=== PATIENT | female | born 1965 | race Caucasian/White ===

== ENCOUNTER → 2019-06-15 16:34 | Outpatient (CLI) | payer OTHER, SELFPAY ==
--- NOTE | 2019-06-15 | DI.MG.S_ITS ---
BILATERAL DIGITAL SCREENING MAMMOGRAM 3D/2D WITH CAD: 06/15/2019 CLINICAL: Routine screening. Family history of breast cancer. Comparison is made to exams dated: 12/20/2016 mammogram and 02/20/2018 mammogram - [facility]. The tissue of both breasts is heterogeneously dense. This may lower the sensitivity of mammography. Current study was also evaluated with a Computer Aided Detection (CAD) system. No significant masses, calcifications, or other findings are seen in either breast. There has been no significant interval change. IMPRESSION: NEGATIVE There is no mammographic evidence of malignancy. A 1 year screening mammogram is recommended. This exam was interpreted at Station ID: [id number]. NOTE: For mammograms, a report in lay terms will be sent to the patient. Approximately 15% of breast malignancies will not be visualized mammographically. In the management of a palpable breast mass, a negative mammogram must not discourage biopsy of a clinically suspicious lesion. Electronically Signed By: Lázaro yang/geneva:06/16/2019 13:01:39 letter sent: Normal Exam ACR BI-RADS Category 1: Negative 3341F
== END ==
PROVIDERS: Visit Provider Internal Medicine
DX: Z12.31 Encounter for screening mammogram for malignant neoplasm of breast (principal); Z80.3 Family history of malignant neoplasm of breast
CPT/HCPCS: 77063; 77067

== ENCOUNTER → 2019-08-18 10:08 | Outpatient (ROUT) | payer OTHER, SELFPAY ==
[2019-08-18 11:02] LABS: Influenza A and B by PCR Rapid Negative (Negative)
== END ==
PROVIDERS: Visit Provider Internal Medicine
DX: R05 Cough (principal); R09.89 Other specified symptoms and signs involving the circulatory and respiratory systems; R11.0 Nausea
CPT/HCPCS: 87502

== ENCOUNTER → 2020-08-01 17:20 | Outpatient (CLI) | payer OTHER, SELFPAY ==
--- NOTE | 2020-08-01 17:26 | DI.MG.S_ITS ---
BILATERAL DIGITAL SCREENING MAMMOGRAM 3D/2D WITH CAD: 08/01/2020 CLINICAL: Routine screening. Family history of breast cancer. Comparison is made to exams dated: 06/15/2019 mammogram - [facility], 02/20/2018 mammogram, and 12/20/2016 mammogram - [facility]. The tissue of both breasts is heterogeneously dense. This may lower the sensitivity of mammography. Current study was also evaluated with a Computer Aided Detection (CAD) system. No significant masses, calcifications, or other findings are seen in either breast. There has been no significant interval change. IMPRESSION: NEGATIVE There is no mammographic evidence of malignancy. A 1 year screening mammogram is recommended. This exam was interpreted at Station ID: [id number]. NOTE: For mammograms, a report in lay terms will be sent to the patient. Approximately 15% of breast malignancies will not be visualized mammographically. In the management of a palpable breast mass, a negative mammogram must not discourage biopsy of a clinically suspicious lesion. Electronically Signed By: Freda lara/geneva:08/02/2020 09:02:40 letter sent: Normal Exam ACR BI-RADS Category 1: Negative 3341F
== END ==
PROVIDERS: PCP Internal Medicine; Referring Provider Internal Medicine; Visit Provider Internal Medicine
DX: Z12.31 Encounter for screening mammogram for malignant neoplasm of breast (principal); Z80.3 Family history of malignant neoplasm of breast
CPT/HCPCS: 77063; 77067

== ENCOUNTER → 2020-12-26 08:15 | Outpatient (CLI) | payer OTHER, SELFPAY ==
[2020-12-26] MEDS: COVID-19 VACC #1, MRNA(MOD) 100 MCG/0.5 ML VIAL IM (08:20)
== END ==
PROVIDERS: PCP Internal Medicine; Visit Provider Internal Medicine
DX: Z23 Encounter for immunization (principal)
CPT/HCPCS: 0011A; 91301

== ENCOUNTER → 2021-01-24 08:05 | Outpatient (CLI) | payer OTHER, SELFPAY ==
[2021-01-24] MEDS: COVID-19 VACC #2, MRNA(MOD) 100 MCG/0.5 ML VIAL IM (08:15)
== END ==
PROVIDERS: PCP Internal Medicine; Referring Provider Internal Medicine; Visit Provider Internal Medicine
DX: Z23 Encounter for immunization (principal)
CPT/HCPCS: 0012A; 91301

== ENCOUNTER 2021-03-19 17:03 | Emergency (ER) | payer OTHER, SELFPAY ==
[2021-03-19] VITALS (14 sets, daily range): BP systolic 86–160; BP diastolic 50–100; PULSE 82–135; RESP 11–21; TEMP 37.1; O2SAT 89–97
[2021-03-19] MEDS: SODIUM CHLORIDE 0.9% 1,000 ML 1000 ML IV (18:00)
[2021-03-19] MEDS: LORazepam 2 MG/ML INJ 1 MG IV (18:01)
[2021-03-19 18:14] LABS: Add Manual Diff / Slide Review NO; Basophils Absolute Auto 100 /uL (0-100); Basophils Percent Auto 0.9 % (0-2); Eosinophils Absolute Auto 100 /uL (0-450); Eosinophils Percent Auto 1.2 % (2-4); Hematocrit 45.6 % (36-46); Hemoglobin 14.9 g/dL (12.0-16.0); Lymphocytes Absolute Auto 3000 /uL (1100-4500); Lymphocytes Percent Auto 43.6 % (25-40); Mean Corpuscular HGB Conc 32.7 % (30-36); Mean Corpuscular Hemoglobin 29.5 PG (26-34); Mean Corpuscular Volume 90.2 fL (80-100); Monocytes Absolute Auto 400 /uL (0-900); Monocytes Percent Auto 5.6 % (3-14); Neutrophils Absolute Auto 3300 /uL (1500-7000); Neutrophils Percent Auto 48.7 % (50-75); Platelet Count 321 X10^3/uL (150-400); Red Blood Cell Count 5.06 X10^6/uL (4.0-5.2); Red Cell Distribution Width 12.9 % (11.6-14.8); White Blood Cell Count 6.8 X10^3/uL (4.5-11.0)
[2021-03-19 18:26] LABS: Alanine Aminotransferase 47 IU/L (<35); Albumin Globulin Ratio 1.6 (1.0-2.8); Alkaline Phosphatase 77 U/L (38-126); Aspartate Aminotransferase 96 IU/L (14-36); BUN Creatinine Ratio 19.3 (6-22); Bilirubin Total 0.9 mg/dL (0.2-1.3); Bilirubin Unconjugated 0.8 mg/dL (0.0-1.1); Blood Urea Nitrogen 11 mg/dL (7-17); Calcium 9.9 mg/dL (8.4-10.2); Carbon Dioxide 26 mmol/L (22-32); Chloride 105 mmol/L (98-107); Estimated Glomerular Filt Rate > 60.0 mL/min (>60); Globulin 3.2 g/dL (1.7-4.1); Glucose 218 mg/dL (70-100); HEMOLYSIS < 15 (0-50); Lipase 320 U/L (23-300); Magnesium 2.1 mg/dL (1.6-2.3); Potassium 4.1 mmol/L (3.4-5.1); Sodium 145 mmol/L (137-145); Total Protein 8.2 g/dL (6.3-8.2)
[2021-03-19 18:33] LABS: Ethanol (ETOH) 337 mg/dL
--- NOTE | 2021-03-19 18:52 | ED.GENADULT ---
HPI - General Adult General Chief complaint: Toxicology Problem Stated complaint: DETOX BREATHING HARD Time Seen by Provider: 03/19/21 17:46 Source: patient Mode of arrival: Ambulatory Limitations: no limitations History of Present Illness HPI narrative: Patient is a 55-year-old female. Is otherwise healthy but has had a long complicated history with drinking. She has been to detox/rehab in the past. Her last stent of this was 4-5 years ago. She started drinking about 1 month ago. This was after spending upwards of 1 year without any alcohol use. Unsure exactly why she started drinking a month ago but it has been daily since then. Her last drink today was at approximately 0200 hours in the afternoon. She states she has withdrawn from alcohol in the past but is been isolated to having shaking. She has never had any seizures in the past. She denies any other medical problems. Denies any other drug use to include marijuana. Does take a multivitamin on a daily basis. She was persuaded to come to the emergency department this evening by her . He is at bedside. She is voluntary for detox. Related Data Previous Rx's Medication Instructions Recorded lorazepam [Ativan] 1 mg PO TID PRN 2 Days #6 tab 03/20/21 Review of Systems Constitutional Constitutional: Reports system reviewed and no additional complaints, except as documented Cardiovascular Cardiovascular: Reports system reviewed and no additional complaints, except as documented Respiratory Respiratory: Reports system reviewed and no additional complaints, except as documented Gastrointestinal Gastrointestinal: Reports system reviewed and no additional complaints, except as documented Neurologic Comments: Intoxicated Psychiatric Comments: Intoxicated Hematologic/Lymphatic Hematologic/Lymphatic: Reports system reviewed and no additional complaints, except as documented Allergic/Immunologic Allergic/Immunologic: Reports system reviewed and no additional complaints, except as documented Patient History Medical History Alcohol abuse alcohol intake frequency: 3 or more drinks per day Exam Initial Vital Signs Initial Vital Signs: Vital Signs Temperature 98.7 F 03/19/21 17:25 Pulse Rate 135 H 03/19/21 17:25 Respiratory Rate 20 03/19/21 17:25 Blood Pressure 160/100 H 03/19/21 17:25 Pulse Oximetry 94 03/19/21 17:25 Const General: cooperative and comfortable Limitations: other limitations (Intoxicated) HENMT Head: normal to inspection and normocephalic Resp Effort & Inspection: normal respiratory effort Auscultation: clear to auscultation bilaterally Cardio Rate: tachycardic Rhythm: regular rhythm GI Inspection: non-distended Palpation: soft Skin Lesions: no lesions Rashes: no rashes Neuro General: patient alert and patient awake Extrem General: normal to inspection and capillary refill normal Psych Appearance: grossly normal and well kempt Scores GCS Shel[place] coma scale eye opening: Spontaneous [place] coma scale verbal response: Orientated [place] coma scale motor response: Obey commands [place] coma scale total score: 15 Course Orders Ordered: ED Orders 03/19/21 17:35 Complete Blood Count AUTO DIFF Stat Comprehensive Metabolic Panel Stat Ethanol (ETOH) Stat Hepatic (Liver) Panel Stat Lipase Stat Magnesium Stat 03/19/21 17:46 Urine Drug Screen, Rapid Stat 03/19/21 17:47 Consult to RETRIMMER - Stock Crane Operator Stat 03/19/21 22:22 Ethanol (ETOH) Stat 03/19/21 22:45 COVID19 -Nasal swab/Pre-Proc Stat Discontinued Medications Sodium Chloride (Normal Saline 0.9%) 1,000 mls @ 1,000 mls/hr IV BOLUS ONE Stop: 03/19/21 18:45 Last Infusion: 03/19/21 19:06 Dose: 0 mls/hr Documented by: Admin: 03/19/21 18:00 Dose: 1,000 mls/hr Documented by: BRENT Lorazepam (Lorazepam 2 Mg/Ml Inj) 1 mg IV NOW ONE Stop: 03/19/21 17:47 Last Admin: 03/19/21 18:01 Dose: 1 mg Documented by: BRENT Lorazepam (Lorazepam 0.5 Mg Tablet) 1 mg PO NOW ONE Stop: 03/20/21 01:12 Vital Signs Vital signs: Vital Signs - 8 hr 03/19/21 17:25 03/19/21 18:40 03/19/21 19:00 Temperature 98.7 F Pulse Rate 135 H 97 H 106 H Respiratory Rate 20 11 L 16 Blood Pressure 160/100 H 124/70 Pulse Oximetry 94 93 92 03/19/21 19:30 03/19/21 20:00 03/19/21 20:30 Temperature Pulse Rate 98 H 88 83 Respiratory Rate 17 17 14 Blood Pressure 114/71 116/72 92/51 L Pulse Oximetry 92 92 03/19/21 21:00 03/19/21 21:06 03/19/21 21:30 Temperature Pulse Rate 84 85 82 Respiratory Rate 15 16 15 Blood Pressure 86/50 L 88/50 L 93/55 L Pulse Oximetry 95 89 L 90 L 03/19/21 21:44 03/19/21 22:00 03/19/21 22:30 Temperature Pulse Rate 83 83 Respiratory Rate 14 13 Blood Pressure 100/70 107/75 Pulse Oximetry 96 97 97 03/19/21 23:00 Temperature Pulse Rate 93 H Respiratory Rate 13 Blood Pressure 116/75 Pulse Oximetry Medical Decision Making Medical Records Medical records reviewed: Yes I reviewed the patient's medical records. Lab Data Lab results reviewed: Yes I reviewed the patient's lab results. Result diagrams: 03/19/21 17:35 03/19/21 17:35 Labs: Lab Results 03/19/21 03/19/21 03/19/21 Range/Units 17:35 17:35 22:22 WBC 6.8 (4.5-11.0) X10^3/uL RBC 5.06 (4.0-5.2) X10^6/uL Hgb 14.9 (12.0-16.0) g/dL Hct 45.6 (36-46) % MCV 90.2 (80-100) fL MCH 29.5 (26-34) PG MCHC 32.7 (30-36) % RDW 12.9 (11.6-14.8) % Plt Count 321 (150-400) X10^3/uL Neut % (Auto) 48.7 L (50-75) % Lymph % (Auto) 43.6 H (25-40) % [place] % (Auto) 5.6 (3-14) % Eos % (Auto) 1.2 L (2-4) % Baso % (Auto) 0.9 (0-2) % Neut # (Auto) 3300 (1334-6825) /uL Lymph # (Auto) 3000 (7525-4603) /uL [place] # (Auto) 400 (0-900) /uL Eos # (Auto) 100 (0-450) /uL Baso # (Auto) 100 (0-100) /uL Sodium 145 (137-145) mmol/L Potassium 4.1 (3.4-5.1) mmol/L Chloride 105 (98-107) mmol/L Carbon Dioxide 26 (22-32) mmol/L BUN 11 (7-17) mg/dL Creatinine 0.57 (0.52-1.04) mg/dL Estimated GFR > 60.0 (>60) mL/min BUN/Creatinine Ratio 19.3 (6-22) Glucose 218 H (70-100) mg/dL Calcium 9.9 (8.4-10.2) mg/dL Magnesium 2.1 (1.6-2.3) mg/dL Total Bilirubin 0.9 (0.2-1.3) mg/dL Conjugated Bilirubin 0.0 (0.0-0.3) md/dL Unconjugated Bilirubin 0.8 (0.0-1.1) mg/dL AST 96 H (14-36) IU/L ALT 47 H (<35) IU/L Alkaline Phosphatase 77 (38-126) U/L Total Protein 8.2 (6.3-8.2) g/dL Albumin 5.0 (3.5-5.0) g/dL Globulin 3.2 (1.7-4.1) g/dL Albumin/Globulin Ratio 1.6 (1.0-2.8) Lipase 320 H (23-300) U/L Ethyl Alcohol 337 H 198 H ( - 10) mg/dL SARS-CoV-2 (PCR) (Negative) 03/19/21 Range/Units 22:45 WBC (4.5-11.0) X10^3/uL RBC (4.0-5.2) X10^6/uL Hgb (12.0-16.0) g/dL Hct (36-46) % MCV (80-100) fL MCH (26-34) PG MCHC (30-36) % RDW (11.6-14.8) % Plt Count (150-400) X10^3/uL Neut % (Auto) (50-75) % Lymph % (Auto) (25-40) % [place] % (Auto) (3-14) % Eos % (Auto) (2-4) % Baso % (Auto) (0-2) % Neut # (Auto) (7669-2417) /uL Lymph # (Auto) (0316-4646) /uL [place] # (Auto) (0-900) /uL Eos # (Auto) (0-450) /uL Baso # (Auto) (0-100) /uL Sodium (137-145) mmol/L Potassium (3.4-5.1) mmol/L Chloride (98-107) mmol/L Carbon Dioxide (22-32) mmol/L BUN (7-17) mg/dL Creatinine (0.52-1.04) mg/dL Estimated GFR (>60) mL/min BUN/Creatinine Ratio (6-22) Glucose (70-100) mg/dL Calcium (8.4-10.2) mg/dL Magnesium (1.6-2.3) mg/dL Total Bilirubin (0.2-1.3) mg/dL Conjugated Bilirubin (0.0-0.3) md/dL Unconjugated Bilirubin (0.0-1.1) mg/dL AST (14-36) IU/L ALT (<35) IU/L Alkaline Phosphatase (38-126) U/L Total Protein (6.3-8.2) g/dL Albumin (3.5-5.0) g/dL Globulin (1.7-4.1) g/dL Albumin/Globulin Ratio (1.0-2.8) Lipase (23-300) U/L Ethyl Alcohol ( - 10) mg/dL SARS-CoV-2 (PCR) Negative (Negative) Point of Care Testing Test Results Negative Point of care testing: Point of Care Testing Test Results Negative MDM Narrative Medical decision making narrative: Patient is medically cleared. She is obviously intoxicated but is alert oriented x3. Has no signs of withdrawal currently. She is voluntary for detox. Patient will be discharged under the care of her to go to the [facility] detox. She was given an Ativan prior to discharge. She was given a prescription for Ativan with instructions at this is only to be administered while she is under their care. Discharge Plan Departure Patient Disposition: Released, Other Clinical Impression: Alcoholic intoxication Instructions: DI for Alcohol Use Disorder Activity Restrictions/Additional Instructions: You are being discharged with your to go directly to [facility] detox. This is located at [address] [place] [address] in [place]. The prescription that you were given is to be only administered while your under their care. Prescriptions: New lorazepam [Ativan] 1 mg tablet 1 mg PO TID PRN (Reason: alcohol withdrawal) 2 Days Qty: 6 RF: 0 Referrals: Kaylin Wu ARNP [Primary Care Provider] -
--- NOTE | 2021-03-19 19:32 | CM.SWNOTE ---
LIVING SKILLS ADVISOR Assessment LIVING SKILLS ADVISOR - Energy Rater Assessment LIVING SKILLS ADVISOR/Energy Rater Assessment Time Spent with Patient Start date 03/19/21 Visit Start Time 18:20 End date 03/19/21 Visit End Time 18:40 Total time Care Management spent on 20 patient visit-in minutes Substance Abuse Screening Include Onset, Duration, Intensity Presenting Problem Patient presents to this ED currently withdrawing from ETOH, patient reports concern of trouble breathing Precipitating Event(s) Patient reports recent relapse due to going out to socially drink 1-2 times a week Patient Strengths Patient presents as open to the idea of detox and treatment. Patient has endurance and reports she runs 5-6 miles a day. Current Behavioral Health Provider(s) None reported Include Facility, Provider, Ph. # Family Hx of Behavioral Abuse Patient reports vague history of alcoholism with ex (father of two daughters) and his passing. Rehab Facilities? ((Date(s), Location(s) Patient states she went to ) [facility] in [place], [place] 4 years ago (2017) History of Withdrawal? Seizures? None reported Longest Period of Sobriety 2 years Psychosocial information & Support Patient is 55 y/o female who Systems resides in [place] with . Patient has and two adult daughters as supports. 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 Patient states she loves her job. Legal Concerns Legal Matters - Outstanding Issues None reported Mental Status Orientation (Person/Place/Time) A/Ox4 Stated Mood ok I drank too much Affect (Congruent with Mood?) Euthymic, flat, congruent with mood Thought Content - Specify/Describe None reported Obsessions, Delusions, Hallucinations Thought Processes (Gvsznxj-Ggsqgiye-Spvr Coherent Lvjlthtc-Zofkvguq-Viqagdhchc- Iktogahglmsfsc-Fneizbp-Cmsaxpfwjejf- Thought Blocking) Speech (Nyjzsq-Uvhe-Cjglysf-Rapid-Soft- Slow Loud-Pressured) Motor (Pxphdi-Tykyptqkg-Pxsq-Other) Slow Insight (Isgx-Farn-Ifrv/Limited) Poor/limited Judgement (Csap-Nhkd-Mgxa/Limited) poor/limited Impulse Control (Adequate-Impaired) Adequate during interview Memory (Vdgxrkupy-Cmelqy-Dusjxk, Impaired Impaired-Intact) Concentration (Intact-Impaired) Somewhat intact during interview Attention (Intact-Impaired) Somewhat intact during interview Behavior (Appropriate-Inappropriate) Appropriate Risk Assessment Suicidal Ideation (Plan) No Homicidal Ideation (Plan) No Comment Patient denies SI, HI and self harm. Intervention Intervention LIVING SKILLS ADVISOR meets with patient. Present is patient's Braydon. Patient provides consent to Braydon staying in room during assessment. Braydon answers questions that patient cannot answer and patient looks to Braydon for support with answering questions. Patient states she drank a sip of a beer today and drank half of a 1/5 (750 mls) of vodka yesterday. Patient reports she generally drinks half a 1/5 of vodka every day. Patient and report that patient went to treatment 3-4 years ago and did well since then and fell off the wagon and got back on track. Braydon reports that patient relapsed a month ago and he noticed a few weeks ago. Patient and report that patient has been to detox before and previously went to and had a sponsor. Patient and report that they brought her in today due to her trouble breathing. LIVING SKILLS ADVISOR discusses detox. reports he has been looking into it for patient and in support of this plan. states that patient's daughters are in support of patient seeking treatment as well. Patient states that her daughters know of her struggles with drinking and she has been drinking since before she was 20. Patient requests time to think about detox and LIVING SKILLS ADVISOR provides time. LIVING SKILLS ADVISOR reviews that patient has BAL of 337 when tested at 1730. It is the opinion of this LIVING SKILLS ADVISOR that patient is appropriate for detox when medically clear and would benefit from this treatment. LIVING SKILLS ADVISOR reviews the above with ED providers Dr. Westbrook and Dr. Rice, both indicate agreement and understanding and report it will take patient several hours to be medically clear for intake at detox facility. LIVING SKILLS ADVISOR reviews the above with patient and , patient is agreeable to detox and reports her willingness to wait. Patient states that she wants to sleep if she has to wait. proceeds to leave to gather clothing for patient. LIVING SKILLS ADVISOR provides with phone number and address for detox and [facility] resources. Plan RA Plan Patient to d/c to detox with providing transportation when medically clear. GEORGES Barriga
[2021-03-19 22:39] LABS: Ethanol (ETOH) 198 mg/dL
[2021-03-19 23:19] LABS: COVID19 -Nasal RAPID Negative (Negative)
[2021-03-20] VITALS: BP 116/77; PULSE 78; RESP 16; O2SAT 97
[2021-03-20 00:30] VITALS: BP 117/73; PULSE 73; RESP 12; O2SAT 98
--- NOTE | 2021-03-20 00:52 | PC.NURSE ---
Pt walked to the bathroom with a steady gait
[2021-03-20 01:00] VITALS: BP 118/77; PULSE 93; RESP 17; O2SAT 92
[2021-03-20] MEDS: LORazepam 0.5 MG TABLET 1 MG PO (01:14)
== END 2021-03-20 01:21 | disposition home or self-care (01) ==
PROVIDERS: Emergency Medicine; Emergency Provider Emergency Medicine; PCP Internal Medicine
DX: F10.129 Alcohol abuse with intoxication, unspecified (principal); Z20.822 Contact with and (suspected) exposure to COVID-19
CPT/HCPCS: 36415; 80053; 80076; 80320; 81025; 83690; 83735; 85025; 87635; 96361; 96374; 99284; 99285; C9803; J2060

== ENCOUNTER → 2021-04-20 17:05 | Outpatient (CLI) | payer OTHER, SELFPAY ==
--- NOTE | 2021-04-20 | DI.RAD.S_ITS ---
PROCEDURE: XR SHOULDER RT MIN 2V INDICATIONS: SHOULDER MASS TECHNIQUE: 3 views of the shoulder were acquired. COMPARISON: None. FINDINGS: Bones: No fractures or dislocations. No suspicious bony lesions. Visualized ribs appear intact. Degenerative changes are seen, with mild subacromial spurring. Soft tissues: No suspicious soft tissue calcifications. No soft tissue masses can be seen on this plain film study. The visualized lung demonstrates an unremarkable appearance. IMPRESSION: No masses are seen by plain film. Degenerative changes are seen. If it would be helpful for clinical management decision making, please consider a dedicated, scheduled shoulder MRI (without and with IV contrast) for further evaluation (assuming that there is no contraindication). Dictated by: Sloan Garcia M.D. on 04/20/2021 at 16:29 Approved by: Sloan Garcia M.D. on 04/20/2021 at 16:29
== END ==
PROVIDERS: PCP Internal Medicine; Referring Provider Family Medicine; Visit Provider Family Medicine
DX: R22.31 Localized swelling, mass and lump, right upper limb (principal)
CPT/HCPCS: 73030

== ENCOUNTER → 2021-08-20 08:27 | Outpatient (CLI) | payer OTHER, SELFPAY ==
--- NOTE | 2021-08-20 | DI.MG.S_ITS ---
BILATERAL DIGITAL SCREENING MAMMOGRAM 3D/2D WITH CAD: 08/20/2021 CLINICAL: Routine screening. Family history of breast cancer. Comparison is made to exams dated: 08/01/2020 mammogram, 06/15/2019 mammogram - [facility], and 02/20/2018 mammogram - [facility]. The tissue of both breasts is heterogeneously dense. This may lower the sensitivity of mammography. Current study was also evaluated with a Computer Aided Detection (CAD) system. There are benign calcifications in both breasts. No significant masses, calcifications, or other findings are seen in either breast. There has been no significant interval change. IMPRESSION: BENIGN There is no mammographic evidence of malignancy. A 1 year screening mammogram is recommended. This exam was interpreted at Station ID: [id number]. NOTE: For mammograms, a report in lay terms will be sent to the patient. Approximately 15% of breast malignancies will not be visualized mammographically. In the management of a palpable breast mass, a negative mammogram must not discourage biopsy of a clinically suspicious lesion. Electronically Signed By: Harish Calderon acr/penrad:08/20/2021 14:16:06 letter sent: Normal Exam ACR BI-RADS Category 2: Benign Finding(s) 3342F
== END ==
PROVIDERS: PCP Internal Medicine; Referring Provider Internal Medicine; Visit Provider Internal Medicine
DX: Z12.31 Encounter for screening mammogram for malignant neoplasm of breast (principal); Z80.3 Family history of malignant neoplasm of breast
CPT/HCPCS: 77063; 77067

== ENCOUNTER → 2021-09-06 15:40 | Outpatient (CLI) | payer OTHER, SELFPAY ==
--- NOTE | 2021-09-06 15:43 | DI.RAD.S_ITS ---
PROCEDURE: XR CERVICAL SPINE 2V OR 3V INDICATIONS: NECK PAIN TECHNIQUE: 2 view(s) of the cervical spine were acquired. COMPARISON: None. FINDINGS: Bones: No fractures or dislocations to the T1 level. The lateral masses of C1 appear intact on the odontoid view. No suspicious bony lesions. Multilevel disc space narrowing and endplate osteophyte formation, worst at C5-C6, indicating degenerative disc disease. Facet hypertrophy throughout the mid and lower cervical spine. Soft tissues: No prevertebral soft tissue swelling. IMPRESSION: Multilevel degenerative disc and facet disease. No acute fracture. No osseous lesion. If symptoms and/or clinical suspicion for pathology persist, further assessment with repeat, or advanced imaging (e.g., CT, MRI, or bone scan) may be helpful for further assessment. Dictated by: Mansi Lew M.D. on 09/06/2021 at 16:33 Approved by: Mansi Lew M.D. on 09/06/2021 at 16:34
== END ==
PROVIDERS: PCP Internal Medicine; Referring Provider Internal Medicine; Visit Provider Internal Medicine
DX: M50.322 Other cervical disc degeneration at C5-C6 level (principal); M47.812 Spondylosis without myelopathy or radiculopathy, cervical region; M99.01 Segmental and somatic dysfunction of cervical region
CPT/HCPCS: 72050

== ENCOUNTER → 2022-09-03 07:53 | Outpatient (CLI) | payer OTHER, SELFPAY ==
--- NOTE | 2022-09-03 | DI.MG.S_ITS ---
BILATERAL DIGITAL SCREENING MAMMOGRAM 3D/2D WITH CAD: 09/03/2022 CLINICAL: Routine screening. Family history of breast cancer. Comparison is made to exams dated: 08/20/2021 mammogram, 08/01/2020 mammogram, and 06/15/2019 mammogram - [facility]. Both breasts are heterogeneously dense, which may obscure small masses (category c / 51-75% glandular tissue). Current study was also evaluated with a Computer Aided Detection (CAD) system. There are benign calcifications in both breasts. No significant masses, calcifications, or other findings are seen in either breast. There has been no significant interval change. IMPRESSION: BENIGN There is no mammographic evidence of malignancy. A 1 year screening mammogram is recommended. Based on Tyrer-Cuzick model (a risk assessment model), the patient's lifetime risk is 23.0% and her 10 year risk is 8.8%. If a patient has an elevated risk, a more comprehensive evaluation should be considered and/or a referral to a genetic counselor. The [place] [employer], [place] [employer], and NCCN Guidelines advise the consideration of Breast MRI as an adjunct to screening mammography in patients whose Lifetime risk to develop breast cancer is 20% or higher. This exam was interpreted at Station ID: [id number]. NOTE: For mammograms, a report in lay terms will be sent to the patient. Approximately 15% of breast malignancies will not be visualized mammographically. In the management of a palpable breast mass, a negative mammogram must not discourage biopsy of a clinically suspicious lesion. Electronically Signed By: Timi guerin/geneva:09/03/2022 08:34:12 letter sent: Normal Exam ACR BI-RADS Category 2: Benign Finding(s) 3342F
== END ==
PROVIDERS: PCP Internal Medicine; Referring Provider Internal Medicine; Visit Provider Internal Medicine
DX: Z12.31 Encounter for screening mammogram for malignant neoplasm of breast (principal); Z80.3 Family history of malignant neoplasm of breast
CPT/HCPCS: 77063; 77067

== ENCOUNTER → 2023-01-20 15:37 | Outpatient (CLI) | payer OTHER, SELFPAY ==
--- NOTE | 2023-01-20 15:39 | DI.RAD.S_ITS ---
PROCEDURE: XR AC JOINT BI INDICATIONS: RIGHT SHOULDER/AC JOINT PAIN TECHNIQUE: 2 views each of both acromioclavicular joints were acquired. COMPARISON: None. FINDINGS: Bones: No fractures or dislocations. No definite widening of the acromioclavicular joints or coracoclavicular distances No suspicious bony lesions. Superior ribs appear normal. Mild AC joint hypertrophy Soft tissues: No suspicious soft tissue calcifications. IMPRESSION: No acute fracture visualized. Bilateral AC joint hypertrophy. If symptoms persist, follow-up radiographs and/or CT or MRI may be helpful for further evaluation. Dictated by: Bret Le M.D. on 01/20/2023 at 18:07 Approved by: Bret Le M.D. on 01/20/2023 at 18:10
== END ==
PROVIDERS: PCP Internal Medicine; Referring Provider Chiropractor; Visit Provider Chiropractor
DX: M25.511 Pain in right shoulder (principal)
CPT/HCPCS: 73050

== ENCOUNTER → 2023-02-15 07:50 | Outpatient (CLI) | payer OTHER, SELFPAY ==
[2023-02-15 09:14] LABS: Add Manual Diff / Slide Review NO; Basophils Absolute Auto 0 /uL (0-100); Basophils Percent Auto 1.1 % (0-2); Eosinophils Absolute Auto 200 /uL (0-450); Eosinophils Percent Auto 4.3 % (2-4); Hemoglobin 11.7 g/dL (12.0-16.0); Lymphocytes Absolute Auto 1500 /uL (1100-4500); Lymphocytes Percent Auto 35.3 % (25-40); Mean Corpuscular HGB Conc 33.6 % (30-36); Mean Corpuscular Hemoglobin 26.4 PG (26-34); Mean Corpuscular Volume 78.7 fL (80-100); Monocytes Absolute Auto 500 /uL (0-900); Monocytes Percent Auto 10.9 % (3-14); Neutrophils Absolute Auto 2100 /uL (1500-7000); Neutrophils Percent Auto 48.4 % (50-75); Platelet Count 250 X10^3/uL (150-400); Red Blood Cell Count 4.45 X10^6/uL (4.0-5.2); Red Cell Distribution Width 15.6 % (11.6-14.8); White Blood Cell Count 4.3 X10^3/uL (4.5-11.0)
[2023-02-15 09:36] LABS: Erythrocyte Sedimentation Rate 5 MM/HR (0-20)
[2023-02-15 09:49] LABS: Iron 84 ug/dL (37-170)
[2023-02-15 09:51] LABS: Alanine Aminotransferase 18 IU/L (<35); Albumin 4.3 g/dL (3.5-5.0); Albumin Globulin Ratio 1.8 (1.0-2.8); Alkaline Phosphatase 58 U/L (38-126); Aspartate Aminotransferase 29 IU/L (14-36); BUN Creatinine Ratio 25.9 (6-22); Bilirubin Total 1.2 mg/dL (0.2-1.3); Blood Urea Nitrogen 15 mg/dL (7-17); Calcium 8.8 mg/dL (8.4-10.2); Carbon Dioxide 29 mmol/L (22-32); Chloride 100 mmol/L (98-107); Cholesterol 165 mg/dL (140-199); Estimated Glomerular Filt Rate > 60 mL/min (>60); Globulin 2.4 g/dL (1.7-4.1); Glucose 90 mg/dL (70-100); HDL Cholesterol 76 mg/dL (40-60); HEMOLYSIS < 15 (0-50); LDL Cholesterol Calculated 80 mg/dL (<100); Lipase 187 U/L (23-300); Potassium 4.2 mmol/L (3.4-5.1); Sodium 136 mmol/L (137-145); Total Protein 6.7 g/dL (6.3-8.2); Triglycerides 43 mg/dL (35-150)
[2023-02-15 10:21] LABS: TSH w/ Reflex to FT4 0.77 uIU/mL (0.47-4.68)
[2023-02-15 10:27] LABS: Ferritin 6 ng/mL (11-264)
== END ==
PROVIDERS: PCP Internal Medicine; Referring Provider Internal Medicine; Visit Provider Internal Medicine
DX: Z00.00 Encounter for general adult medical examination without abnormal findings (principal); R74.8 Abnormal levels of other serum enzymes; R79.89 Other specified abnormal findings of blood chemistry
CPT/HCPCS: 36415; 80053; 80061; 82728; 83540; 83690; 84443; 85025; 85651

== ENCOUNTER 2023-07-28 09:57 | Day surgery (SDC) | payer OTHER, SELFPAY ==
[2023-07-23 14:55] VITALS: BMI 20.5
--- NOTE | 2023-07-28 | PATH_ITS ---
[facility] Accession Number: [id number] No. of containers..01 Tissue . 01 Material submitted: . cervix - CERVICAL CONE . 01 Clinical history: . ANTERIOR LIP OF CERVIX-LONG SUTURE AT 12 O'CLOCK POSTERIOR LIP OF CERVIX-SHORT SUTURE AT 6 . 01 Diagnosis: A. Uterine Cervix, Cone, LEEP Excision: Transformation zone mucosa with focally dysplastic squamous epithelium consistent with focal high-grade squamous intraepithelial lesion (HSIL, BENTLEY-2/moderate dysplasia) with rare extension into endocervical glands. HSIL focally approaches inked/cauterized apparent endocervical tissue edges, and is free from the remaining inked/cauterized tissue edges. Extensively denuded mucosa with associated inflammation and giant cell reaction as evidence of prior procedural effect. Background of extensive atrophy is also seen. Negative for glandular dysplasia and invasive malignancy. . Comment: Focally dysplastic squamous epithelium is seen approaching closely an inked/cauterized apparent endocervical tissue edge (block A3, posterior lip 3 to 6 o'clock). Given the fragmented nature of the specimen, clinical correlation is necessary to determine whether this edge represents true margins. [facility] 08/06/2023 1245 Local . 01 Electronically signed: . Lety Clark MD, Pathologist NPI- [id number] . 01 Gross description: . The specimen is received in formalin labeled with the patient's name, , and cervical cone biopsy, consists of three oriented fragments of cervix. The first fragment is linear with a long suture located centrally designating 12 o'clock per the requisition, and measuring 1.1 cm from 12 to 6, 2.2 cm from 3 to 9, and is excised to a depth of 0.6 cm. The ectocervix is robison and finely granular. The presumed endocervical margin is inked orange while the remaining stromal margins are inked blue, and the fragment is serially sectioned. . The second fragment has a short suture designating 6 o'clock per the requisition and measuring 0.7 cm from 12 to 6, 2.5 cm from 3 to 9, and is excised to a depth of 0.3 cm. The ectocervix is finely granular. The presumed endocervical margin is inked orange while the remaining stromal margins are inked green, and the fragment is serially sectioned. . The third fragment is circular with a knot designating 12 o'clock per the client, and measuring 1.2 cm from 9 to 6, 1.4 cm from 3 to 9, and is excised to a depth of 0.5 cm. The slit-like os measures 0.6 cm in diameter. The concave surface is inked black while the convex surface is inked orange adjacent to the endocervical margin, and the remaining convex surface is inked blue. The fragment is radially sectioned. . The specimen is submitted entirely as follows: A1: Anterior lip 9 to 12. A2: Anterior lip 12 to 3. A3: Posterior lip 3 to 6. A4: Posterior lip 6 to 9. A5: Third fragment 12 to 3. A6: Third fragment 3 to 9. A7: Third fragment 6 to 9. A8: Third fragment 9 to 12. ([id number]) /MRV 07/30/[address] [place] [address] . Pathologist provided ICD-10: N87.1 . 01 CPT . 333327 Specimen Comment: A courtesy copy of this report has been sent to [phone] Performed at: 01 [facility] [address] [place] [address], [place], [place] [id number] MD Joe Lipscomb MD Phone: [phone]
[2023-07-28 10:04] VITALS: BP 148/85; PULSE 78; RESP 16; TEMP 37.2; O2SAT 99; BMI 20.2
[2023-07-28] MEDS: LACTATED RINGERS 1,000 ML 100 ML IV (10:25)
--- NOTE | 2023-07-28 11:27 | SUR.OPER ---
Lithotomy on padded OR bed, head on pillow, arms secured on padded arm boards at <90 degrees abduction. Legs secured in padded yellow fins stirrups.
--- NOTE | 2023-07-28 11:34 | P.HPOB_ITS ---
History of Present Illness History of Present Illness Reason for admission: other (Cervical dysplasia) Narrative: Yoly Christie is a 57 year old female with BENTLEY 2-3 of the endocervix by colposcopic biopsy. She presents for a LEEP cone biopsy of the cervix. [facility] Medical History History of COVID-19 (09/29/22) Alcohol abuse Surgical History (Updated 07/25/23 @ 15:03 by Amy Sanders) Anesthesia History of bunionectomy of both great toes Family History (Updated 07/25/23 @ 15:04 by Amy Sanders) Father Stroke Mother Cancer Social History household members: spouse Smoking Status: Never smoker alcohol intake: former Meds Home Medications and Allergies Home Medications Medication Instructions Recorded Confirmed Type latanoprost 0.005 % eye drops 1 drp EYE-BOTH ONCE PM 07/28/23 07/28/23 History Allergies Allergy/AdvReac Type Severity Reaction Status Date / Time Sulfa (Sulfonamide Allergy Mild Rash Verified 07/07/23 15:09 Antibiotics) Exam Vital Signs (past 8 hours): - 07/28/23 10:04 Temperature 99 F Pulse Rate 78 Respiratory Rate 16 Blood Pressure 148/85 H Pulse Oximetry 99 Oxygen Delivery Method Room Air Oxygen Delivery Method Room Air Narrative Exam Narrative: HEENT: No thyromegaly, no anterior cervical or supraclavicular lymphadenopathy. Lungs:Clear to auscultation bilaterally, no wheezes. Cardiovascular: Regular rate and rhythm, no murmurs, rubs, or gallops. Abdomen: No scars. No hepatosplenomegaly. No masses palpable. External genitalia: Normal Vagina: Normal Cervix: Normal Bimanual exam: 6 Week size uterus. Mobile. Extremities: No edema Assessment & Plan Assessment & Plan narrative: Assessment: 57-year-old with BENTLEY 2-3 of the endocervix Plan: LEEP cone biopsy of the cervix The risks, benefits, and alternatives to the procedure were explained to the patient. The risks including bleeding and infection. She understands these risks and agrees to proceed. A full par Q was held and consent form was signed. Time Spent With Patient Time with patient: less than 30 minutes
[2023-07-28 12:33] VITALS: BP 120/81; PULSE 79; RESP 16; TEMP 36.4; O2SAT 97
[2023-07-28 12:41] VITALS: BP 134/92; PULSE 81; RESP 20; TEMP 36.3; O2SAT 98
[2023-07-28 12:49] VITALS: BP 119/79; PULSE 81; RESP 17; TEMP 36.4; O2SAT 98
--- NOTE | 2023-07-28 13:02 | P.OP_ITS ---
Operative Date/Time/Diagnoses Date of procedure: 07/28/23 Time of procedure: 12:30 Pre-op diagnosis: BENTLEY 2-3 of the cervix Post-op diagnosis: same Procedure & Clinicians Procedure: Procedures Operation Date: 07/28/23 11:15 Actual Procedure Side Surgeon p LEEP Procedure Martina Smith MD Indications: BENTLEY 2-3 of the cervix Surgeon: Martina Smith Anesthesia Type: General (LMA) Operative Notes Findings: Lugol's light area at surrounding the cervical os Closure Type: not applicable Specimen(s): other (LEEP cone bx of the cervix) Estimated blood loss (mL): 10 Blood products transfused: none Procedure in detail: After informed consent was obtained, the patient was taken to the operating room where she was placed in the dorsal supine position. After adequate LMA general anesthesia was achieved, she was placed in the dorsal lithotomy position, and prepped and draped in the usual sterile fashion. A time-out was performed. A plastic coated bivalve speculum was placed into the vagina. Lugol's was applied to the cervix. There were Lugol's light areas immediately surrounding the cervical os and extending into the cervical canal. A single-tooth tenaculum was placed on the anterior lip of the cervix. Using the 1.5 cm loop and settings at 80 cut and 60 cautery, a LEEP cone biopsy of the cervix/endocervix was obtained. Ball cautery was used to cauterize the endocervix for hemostasis. The single- tooth tenaculum was removed from the anterior lip of the cervix. The plastic coated bivalve speculum was removed from the vagina. The specimen was tagged at 12:00 o'clock. The patient tolerated the procedure well, and was taken to PACU in stable condition. Complications: none Post-operative Condition: stable Disposition: PACU Plan for aftercare: Home after recovery
== END 2023-07-28 13:23 | disposition home or self-care (01) ==
PROVIDERS: PCP Internal Medicine; Referring Provider Obstetrics & Gynecology; Visit Provider Obstetrics & Gynecology
PROC: 0UBC7ZZ Excision of Cervix, Via Natural or Artificial Opening (ICD-10-PCS; CPT 57522; principal; 2023-07-28 11:15)
DX: N87.1 Moderate cervical dysplasia (principal); N88.8 Other specified noninflammatory disorders of cervix uteri
CPT/HCPCS: 57522; J1100; J1885; J2250; J2405; J2704; J3010

== ENCOUNTER → 2023-09-06 12:14 | Outpatient (CLI) | payer OTHER, SELFPAY ==
--- NOTE | 2023-09-06 | DI.MG.S_ITS ---
BILATERAL DIGITAL SCREENING MAMMOGRAM 3D/2D WITH CAD: 09/06/2023 CLINICAL: Routine screening. Family history of breast cancer. Comparison is made to exams dated: 08/20/2021 mammogram, 09/03/2022 mammogram, and 08/01/2020 mammogram - [facility]. Both breasts are heterogeneously dense, which may obscure small masses (category c / 51-75% glandular tissue). Current study was also evaluated with a Computer Aided Detection (CAD) system. There are benign calcifications in both breasts. No significant masses, calcifications, or other findings are seen in either breast. There has been no significant interval change. IMPRESSION: BENIGN There is no mammographic evidence of malignancy. A 1 year screening mammogram is recommended. Based on Tyrer-Cuzick model (a risk assessment model), the patient's lifetime risk is 22.7% and her 10 year risk is 9.1%. If a patient has an elevated risk, a more comprehensive evaluation should be considered and/or a referral to a genetic counselor. The [place] [employer], [place] [employer], and NCCN Guidelines advise the consideration of Breast MRI as an adjunct to screening mammography in patients whose Lifetime risk to develop breast cancer is 20% or higher. This exam was interpreted at Station ID: [id number]. NOTE: For mammograms, a report in lay terms will be sent to the patient. Approximately 15% of breast malignancies will not be visualized mammographically. In the management of a palpable breast mass, a negative mammogram must not discourage biopsy of a clinically suspicious lesion. Electronically Signed By: Lázaro yang/geneva:09/08/2023 07:19:40 letter sent: Normal Exam ACR BI-RADS Category 2: Benign Finding(s) 3342F
== END ==
PROVIDERS: PCP Internal Medicine; Referring Provider Internal Medicine; Visit Provider Internal Medicine
DX: Z12.31 Encounter for screening mammogram for malignant neoplasm of breast (principal); Z80.3 Family history of malignant neoplasm of breast
CPT/HCPCS: 77063; 77067

== ENCOUNTER → 2024-09-21 15:54 | Outpatient (CLI) | payer OTHER, SELFPAY ==
--- NOTE | 2024-09-21 15:54 | DI.MG.S_ITS ---
BILATERAL DIGITAL SCREENING MAMMOGRAM 3D/2D WITH CAD: 09/21/2024 CLINICAL: Routine screening. Family history of breast cancer. Comparison is made to exams dated: 09/06/2023 mammogram, 09/03/2022 mammogram, and 08/20/2021 mammogram - [facility]. The breasts are heterogeneously dense, which may obscure small masses (category c / 51-75% glandular tissue). Current study was also evaluated with a Computer Aided Detection (CAD) system. No significant masses, calcifications, or other findings are seen in either breast. There has been no significant interval change. IMPRESSION: NEGATIVE There is no mammographic evidence of malignancy. A 1 year screening mammogram is recommended. Based on Tyrer-Cuzick model (a risk assessment model), the patient's lifetime risk is 22.3% and her 10 year risk is 9.4%. If a patient has an elevated risk, a more comprehensive evaluation should be considered and/or a referral to a genetic counselor. The [place] [employer], [place] [employer], and NCCN Guidelines advise the consideration of Breast MRI as an adjunct to screening mammography in patients whose Lifetime risk to develop breast cancer is 20% or higher. This exam was interpreted at Station ID: [id number]. NOTE: For mammograms, a report in lay terms will be sent to the patient. Approximately 15% of breast malignancies will not be visualized mammographically. In the management of a palpable breast mass, a negative mammogram must not discourage biopsy of a clinically suspicious lesion. Electronically Signed By: Zoie Quick M.D., Ph.D. fabian/geneva:09/23/2024 02:26:09 letter sent: Normal Exam ACR BI-RADS Category 1: Negative
== END ==
PROVIDERS: PCP Internal Medicine; Referring Provider Internal Medicine; Visit Provider Internal Medicine
DX: Z12.31 Encounter for screening mammogram for malignant neoplasm of breast (principal); Z80.3 Family history of malignant neoplasm of breast; R92.333 Mammographic heterogeneous density, bilateral breasts
CPT/HCPCS: 77063; 77067

== ENCOUNTER → 2024-10-19 14:20 | Outpatient (CLI) | payer OTHER, SELFPAY ==
--- NOTE | 2024-10-19 14:23 | DI.RAD.S_ITS ---
PROCEDURE: XR HAND RT 2V INDICATIONS: Pain. TECHNIQUE: 2 views of the hand(s) acquired. COMPARISON: None. FINDINGS: Bones: No fractures or dislocations. Carpal bones are normally aligned. No suspicious bony lesions. Polyarticular osteoarthritic degenerative changes noted. Soft tissues: No suspicious soft tissue calcifications. IMPRESSION: No acute bony abnormality. Osteoarthritis. Dictated by: Shama Braden MD, PhD on 10/19/2024 at 15:24 Approved by: Shama Braden MD, PhD on 10/19/2024 at 15:25
--- NOTE | 2024-10-19 14:23 | DI.RAD.S_ITS ---
PROCEDURE: XR HAND LT 2V INDICATIONS: THUMB PAIN TECHNIQUE: 3 views of the hand(s) acquired. COMPARISON: None. FINDINGS: Bones: No fractures or dislocations. Carpal bones are normally aligned. No suspicious bony lesions. Polyarticular osteoarthritic degenerative changes noted. Soft tissues: No suspicious soft tissue calcifications. IMPRESSION: No acute bony abnormality. Dictated by: Shama Braden MD, PhD on 10/19/2024 at 15:21 Approved by: Shama Braden MD, PhD on 10/19/2024 at 15:21
== END ==
PROVIDERS: PCP Internal Medicine; Referring Provider Internal Medicine; Visit Provider Internal Medicine
DX: M79.645 Pain in left finger(s) (principal); M19.041 Primary osteoarthritis, right hand; M79.644 Pain in right finger(s)
CPT/HCPCS: 73120

== ENCOUNTER → 2024-11-29 07:16 | Outpatient (CLI) | payer OTHER, SELFPAY ==
[2024-11-29 08:03] LABS: COVID-19 CEPHEID 4-PLEX PCR Negative (Negative); Influenza A - CEPHEID Flu A POSITIVE (NEGATIVE); Influenza B - CEPHEID Flu B NEGATIVE (NEGATIVE); Respiratory Syncytial Virus Negative (Negative)
== END ==
PROVIDERS: PCP Internal Medicine; Referring Provider Nurse Practitioner Family; Visit Provider Nurse Practitioner Family
DX: R05.1 Acute cough (principal)
CPT/HCPCS: 0241U

== ENCOUNTER → 2024-11-29 07:30 | Outpatient (CLI) | payer OTHER, SELFPAY ==
--- NOTE | 2024-11-29 07:31 | DI.RAD.S_ITS ---
PROCEDURE: XR CHEST 2V INDICATIONS: cough TECHNIQUE: 2 views of the chest were acquired. COMPARISON: None. FINDINGS: Surgical changes and devices: None. Lungs and pleura: Lungs are clear. No pleural effusions or pneumothorax. Mediastinum: Mediastinal contours are normal. Heart size is normal. Bones and chest wall: No suspicious bony abnormalities. Soft tissues appear unremarkable. IMPRESSION: No acute pulmonary process. Dictated by: Kandice Gage M.D. on 11/29/2024 at 14:41 Approved by: Kandice Gage M.D. on 11/29/2024 at 14:42
== END ==
PROVIDERS: Referring Provider Nurse Practitioner Family; Visit Provider Nurse Practitioner Family
DX: R05.1 Acute cough (principal)
CPT/HCPCS: 0241U; 71046

== ENCOUNTER → 2025-09-08 07:04 | Outpatient (CLI) | payer OTHER, SELFPAY ==
[2025-09-08 08:08] LABS: Hemoglobin A1C% w Est Avg Glu 5.7 % (4.0-6.0)
[2025-09-09 08:11] LABS: Insulin Level Total 5.2 uIU/mL (2.6-24.9)
== END ==
PROVIDERS: Referring Provider Naturopath; Visit Provider Naturopath
DX: R73.09 Other abnormal glucose (principal)
CPT/HCPCS: 36415; 83036; 83525

== ENCOUNTER → 2025-09-30 15:51 | Outpatient (CLI) | payer OTHER, SELFPAY ==
--- NOTE | 2025-09-30 15:51 | DI.MG.S_ITS ---
MM screening mammo BI: 09/30/2025. BI-RADS: 1 CLINICAL: 60-year old female for bilateral screening mammogram. Tyrer-Cuzick lifetime risk of 10.9%. Current reported family history of breast cancer: mother and maternal aunt. PRIOR EXAMS 09/21/2024, 09/06/2023, 09/03/2022, 08/20/2021. MAMMOGRAPHY TECHNIQUE: 2D and 3D (tomosynthesis) digital mammographic views obtained, with additional images as needed for full coverage. Current study was also evaluated with a Computer Aided Detection (CAD) system. DENSITY C. The breasts are heterogeneously dense, which may obscure small masses. MAMMOGRAPHY FINDINGS Bilateral: No suspicious mass, asymmetry, microcalcification, or other abnormality seen. IMPRESSION: * No evidence of malignancy. RECOMMENDATIONS Bilateral * Annual screening mammography. OVERALL ASSESSMENT CATEGORY BI-RADS-1: Negative. The [employer] [place] [employer] recommends annual screening mammography beginning at age 40 for women with average risk of breast cancer. ELECTRONICALLY SIGNED: Lalitha Chapman M.D. on 09/30/2025 at 05:14:40 PM PT Interpreting Station ID: [id number]
== END ==
LOC: MAMMO 15:51
PROVIDERS: PCP Family Medicine; Referring Provider Family Medicine; Visit Provider Family Medicine
DX: Z12.31 Encounter for screening mammogram for malignant neoplasm of breast (principal); R92.333 Mammographic heterogeneous density, bilateral breasts; Z80.3 Family history of malignant neoplasm of breast
CPT/HCPCS: 77063; 77067